=== PATIENT | female | born 1960 | race Caucasian/White ===

== ENCOUNTER 2019-01-02 16:19 | Inpatient (IN) ==
[2019-01-02 17:49] LABS: Basophils # 0.2 10*3/uL (0.0-0.2); Basophils % 1.8 % (0.0-0.8); Eosinophils # 0.4 10*3/uL (0.0-0.87); Eosinophils % 4.1 % (0.00-10.9); Hematocrit 46.7 VOL% (35.7-47.0); Hemoglobin 14.3 GM/DL (12.0-16.0); Immature Granulocytes % 0.4 %; Immature Granulocytes Absolute 0.04 #; Lymphocytes # 2.4 10*3/uL (1.4-4.0); Mean Corpuscular HGB Conc 30.6 GM/DL (32-36); Mean Corpuscular Volume 86.2 FL (87-102); Mean Platelet Volume 10.4 FL (9.6-12.0); Monocytes % 6.5 % (1.7-12.7); Neutrophils % 63.2 % (38.7-73.9); Platelet Count 686 T/CUMM (130-400); Red Blood Count 5.42 MC/CUMM (3.8-5.5); Red Cell Distribution Width 15.8 % (9.3-17.3); White Blood Count 10.1 T/CUMM (4-12)
[2019-01-02 18:00] LABS: Apearance,Urine CLEAR (Clear); Bilirubin,Urine Negative (Negative); Blood, Urine Negative (Negative); Glucose,Urine (UA) Negative (Negative); Ketones,Urine Negative (Negative); Mucus,Urine Occasional /LPF (Occasional); Nitrite,Urine Negative (Negative); Protein,Urine Negative; RBC,Urine 1 /HPF (0-4); Squamous Epithelial Cell,Urine Occasional /HPF (0-10); Urine Color Straw (Yellow); Urine Specific Gravity 1.014 (1.001-1.035); Urine Urobilinogen < 2.0 EU/DL (0.2-1.0); WBC,Urine 1 /HPF (0-6)
[2019-01-02 18:10] LABS: Alanine Aminotransferase 28 U/L (13-56); Albumin 3.8 G/DL (3.4-5.0); Alkaline Phosphatase 66 U/L (45-117); Aspartate Amino Transferase 13 U/L (0-37); Bilirubin,Total < 0.39 MG/DL (0.2-1.0); Blood Urea Nitrogen 17 MG/DL (7-18); Calcium 9.6 MG/DL (8.5-10.1); Estimated Glom Filtration Rate 59 ML/MIN; Glucose 93 MG/DL (74-106); Osmolality,Calculated 284.1 MOS/KG (273-304); Total Protein 6.5 G/DL (6.4-8.3)
[2019-01-02] MEDS: SODIUM CHLORIDE 0.45% 1,000 ML IV SCH (20:51)
[2019-01-03] MEDS: hydrALAZINE 20 MG/1 ML VIAL IV PRN ×2 (02:14→11:08)
[2019-01-03] MEDS: SODIUM CHLORIDE 0.45% 1,000 ML IV SCH ×3 (04:55→18:30)
[2019-01-03 05:38] LABS: Calcium 9.2 MG/DL (8.5-10.1); Osmolality,Calculated 288.8 MOS/KG (273-304)
[2019-01-03] MEDS: PANTOPRAZOLE 40 MG TABLET PO SCH (08:49)
[2019-01-03] MEDS: LOSARTAN 50 MG TABLET PO SCH (08:50)
[2019-01-03] MEDS ORDERED: NON-FORMULARY MEDICATION (Omeprazole 20 MG) PO SCH (09:00)
[2019-01-03] MEDS: ACETAMINOPHEN 325 MG TABLET PO PRN ×2 (10:05→16:05)
[2019-01-03] MEDS: hydroCHLOROthiazide 12.5 MG CAPSULE PO SCH (10:05)
[2019-01-03] MEDS: ONDANSETRON 4 MG/2 ML VIAL IV PRN (12:17)
[2019-01-03] MEDS ORDERED: diphenhydrAMINE 50 MG/1 ML VIAL IV ONE ×2 (15:46→21:57)
[2019-01-03] MEDS: MORPHINE 4 MG/1 ML VIAL IV PRN ×2 (15:59→22:29)
[2019-01-04] MEDS ORDERED: PNEUMOCOCCAL VACCINE (23 VALENT) 0.5 ML VIAL IM ONE (00:01)
[2019-01-04] MEDS ORDERED: INFLUENZA VIRUS VACCINE 0.5 ML SYRINGE IM ONE (00:01)
[2019-01-04] MEDS: hydrALAZINE 20 MG/1 ML VIAL IV PRN (04:39)
[2019-01-04] MEDS ORDERED: HYDROmorphone 2 MG/1 ML VIAL IV ONE (07:37)
[2019-01-04] MEDS: ONDANSETRON 4 MG/2 ML VIAL IV PRN (08:11)
[2019-01-04] MEDS: PANTOPRAZOLE 40 MG TABLET PO SCH (09:17)
[2019-01-04] MEDS: hydroCHLOROthiazide 12.5 MG CAPSULE PO SCH (09:17)
[2019-01-04] MEDS: LOSARTAN 50 MG TABLET PO SCH (09:17)
[2019-01-04] MEDS: PROMETHAZINE 25 MG/1 ML VIAL IM PRN ×2 (10:10→22:02)
[2019-01-04] MEDS: SODIUM CHLORIDE 0.45% 1,000 ML IV SCH (13:31)
[2019-01-04] MEDS: BUTALBITAL/ACETAMIN/CAFFEINE 50-325-40 MG TABLET PO PRN ×2 (14:18→20:34)
[2019-01-05] MEDS: hydrALAZINE 20 MG/1 ML VIAL IV PRN (04:33)
[2019-01-05] MEDS: SODIUM CHLORIDE 0.45% 1,000 ML IV SCH ×4 (04:41→14:32)
[2019-01-05] MEDS ORDERED: cefOXitin 2,000 MG in SYRINGE 1 EACH IV ONE (06:30)
[2019-01-05] MEDS ORDERED: DIAZEPAM 5 MG TABLET PO ONE (08:00)
[2019-01-05] MEDS ORDERED: FAMOTIDINE 20 MG TABLET PO ONE (08:00)
[2019-01-05] MEDS ORDERED: SCOPOLAMINE 1.5 MG PATCH TRANSDERM ONE (10:59)
[2019-01-05] MEDS ORDERED: HYDROmorphone 2 MG/1 ML VIAL ONE (12:55)
[2019-01-05] MEDS: HYDROmorphone 2 MG/1 ML VIAL IV PRN ×4 (13:00→13:33)
[2019-01-05] MEDS ORDERED: ONDANSETRON 4 MG/2 ML VIAL IV PRN (13:10)
[2019-01-05] MEDS: hydroCHLOROthiazide 12.5 MG CAPSULE PO SCH (16:11)
[2019-01-05] MEDS: LOSARTAN 50 MG TABLET PO SCH (16:12)
[2019-01-05] MEDS: PANTOPRAZOLE 40 MG TABLET PO SCH (16:12)
[2019-01-05] MEDS: KETOROLAC 15 MG/1 ML VIAL IV PRN (20:04)
[2019-01-06] MEDS: KETOROLAC 15 MG/1 ML VIAL IV PRN (01:19)
[2019-01-06] MEDS: HYDROmorphone 2 MG/1 ML VIAL IV PRN ×5 (02:26→20:39)
[2019-01-06] MEDS: SODIUM CHLORIDE 0.45% 1,000 ML IV SCH (06:41)
[2019-01-06] MEDS: PANTOPRAZOLE 40 MG TABLET PO SCH (08:28)
[2019-01-06] MEDS: LOSARTAN 50 MG TABLET PO SCH (08:28)
[2019-01-06] MEDS: hydroCHLOROthiazide 12.5 MG CAPSULE PO SCH (08:28)
[2019-01-06] MEDS: MAGNESIUM HYDROXIDE SUSP 30 ML UDCUP PO PRN (12:09)
[2019-01-06] MEDS: BENZONATATE 100 MG CAPSULE PO PRN ×2 (12:09→20:49)
[2019-01-07] MEDS: HYDROmorphone 2 MG/1 ML VIAL IV PRN ×4 (00:05→20:03)
[2019-01-07] MEDS: SODIUM CHLORIDE 0.45% 1,000 ML IV SCH ×2 (00:07→23:39)
[2019-01-07 05:59] LABS: Basophils # 0.1 10*3/uL (0.0-0.2); Basophils % 1.1 % (0.0-0.8); Eosinophils # 0.4 10*3/uL (0.0-0.87); Eosinophils % 3.4 % (0.00-10.9); Immature Granulocytes % 0.6 %; Immature Granulocytes Absolute 0.07 #; Lymphocytes # 2.9 10*3/uL (1.4-4.0); Lymphocytes % 26.9 % (21.3-54.2); Mean Corpuscular HGB Conc 29.7 GM/DL (32-36); Mean Corpuscular Volume 88.6 FL (87-102); Mean Platelet Volume 10.5 FL (9.6-12.0); Monocytes % 7.1 % (1.7-12.7); Neutrophils % 60.9 % (38.7-73.9); Platelet Count 691 T/CUMM (130-400); Red Blood Count 4.83 MC/CUMM (3.8-5.5); Red Cell Distribution Width 16.1 % (9.3-17.3); White Blood Count 10.8 T/CUMM (4-12)
[2019-01-07 06:21] LABS: Calcium 8.4 MG/DL (8.5-10.1); Osmolality,Calculated 282.3 MOS/KG (273-304)
[2019-01-07 06:23] LABS: Hematocrit 42.8 VOL% (35.7-47.0); Hemoglobin 12.8 GM/DL (12.0-16.0)
[2019-01-07] MEDS: AZITHROMYCIN INJ 500 MG in SODIUM CHLORIDE 0.9% 250 ML IV SCH (08:54)
[2019-01-07] MEDS: cefTRIAXone 1,000 MG in SYRINGE 1 EACH IV SCH (08:54)
[2019-01-07] MEDS: PANTOPRAZOLE 40 MG TABLET PO SCH (08:54)
[2019-01-07] MEDS: LOSARTAN 50 MG TABLET PO SCH (08:54)
[2019-01-07] MEDS: hydroCHLOROthiazide 12.5 MG CAPSULE PO SCH (08:54)
[2019-01-07] MEDS: BUTALBITAL/ACETAMIN/CAFFEINE 50-325-40 MG TABLET PO PRN (09:27)
[2019-01-07] MEDS: MAGNESIUM HYDROXIDE SUSP 30 ML UDCUP PO PRN (09:27)
[2019-01-07] MEDS: BENZONATATE 100 MG CAPSULE PO PRN (17:22)
[2019-01-08] MEDS: BENZONATATE 100 MG CAPSULE PO PRN (01:00)
[2019-01-08] MEDS: HYDROmorphone 2 MG/1 ML VIAL IV PRN (01:01)
[2019-01-08] MEDS: BUTALBITAL/ACETAMIN/CAFFEINE 50-325-40 MG TABLET PO PRN (05:40)
[2019-01-08] MEDS ORDERED: MAGNESIUM HYDROXIDE SUSP 30 ML UDCUP PO ONE (07:26)
[2019-01-08] MEDS ORDERED: BISACODYL 10 MG SUPP RECTAL ONE (07:26)
[2019-01-08] MEDS: PROMETHAZINE 25 MG/1 ML VIAL IM PRN (09:50)
[2019-01-08] MEDS: cefTRIAXone 1,000 MG in SYRINGE 1 EACH IV SCH (09:51)
[2019-01-08] MEDS: hydroCHLOROthiazide 12.5 MG CAPSULE PO SCH (09:53)
[2019-01-08] MEDS: LOSARTAN 50 MG TABLET PO SCH (09:53)
[2019-01-08] MEDS: PANTOPRAZOLE 40 MG TABLET PO SCH (09:53)
[2019-01-08] MEDS: AZITHROMYCIN INJ 500 MG in SODIUM CHLORIDE 0.9% 250 ML IV SCH (09:55)
[2019-01-08 12:11] VITALS: BP 149/67
[2019-01-08] MEDS: SODIUM CHLORIDE 0.45% 1,000 ML IV SCH (15:56)
== END 2019-01-08 15:09 | disposition home or self-care (01) | DRG 353 ==
LOC: N.ED 16:19 → N.EDINP 18:15 → N.3E 18:46
PROVIDERS: ADMIT Surgery; ATTEND Surgery